=== PATIENT | male | born 1985 | race Asian ===

== ENCOUNTER 2021-03-04 10:21 | Outpatient (REF) | payer BC, SELFPAY | END 2021-03-04 10:22 | disposition home or self-care (01) | LOC: HO.LAB 10:21 | PROVIDERS: Visit Provider Internal Medicine | DX: Z20.822 Contact with and (suspected) exposure to COVID-19 (principal) | CPT/HCPCS: C9803; U0003; U0005 ==

== ENCOUNTER 2022-11-15 10:42 | Outpatient (REF) | payer BC, SELFPAY | END 2022-11-15 10:43 | disposition home or self-care (01) | LOC: HO.XRAY 10:42 | PROVIDERS: Visit Provider Pediatrics | DX: R76.12 Nonspecific reaction to cell mediated immunity measurement of gamma interferon antigen response without active tuberculosis (principal) | CPT/HCPCS: 71046 ==